=== PATIENT | female | born 1940 | race Hispanic/Latino ===

== ENCOUNTER 2021-08-03 08:40 | Day surgery (SDC) | payer MEDICARE ==
[2021-08-01 13:12] VITALS: BP 169/61
[2021-08-01 13:12] LABS: BASOPHILS % (AUTO) 0.6 % (0.0-5.0); EOSINOPHILS % (AUTO) 2.1 % (0.0-8.0); HEMATOCRIT 39.2 % (36-48); MEAN CORPUSCULAR HEMOGLOBIN 30.4 pg (27.0-33.0); MEAN CORPUSCULAR HGB CONC 32.9 g/dL (32.0-36.0); MEAN CORPUSCULAR VOLUME 92.2 fL (79-99); MONOCYTES % (AUTO) 8.3 % (3.0-13.0); NEUTROPHILS % (AUTO) 59.6 % (40.0-77.0); PLATELET COUNT (AUTO) 376 K/uL (130-400); RED BLOOD CELL COUNT(AUTO) 4.25 MIL/uL (4.00-5.50); RED CELL DISTRIBUTION WIDTH 14.4 % (11.0-15.5); WHITE BLOOD COUNT (AUTO) 7.3 K/uL (4.8-10.8)
[2021-08-01 13:16] LABS: APPEARANCE,URINE Clear (CLEAR); BILIRUBIN,URINE Negative (NEGATIVE); COLOR,URINE Dark Yellow (YELLOW); GLUCOSE, URINE (UA) Negative (NEGATIVE); KETONES,URINE Negative (NEGATIVE); LEUKOCYTE ESTERASE ,URINE Small (NEGATIVE); NITRATE,URINE Negative (NEGATIVE); OCCULT BLOOD,URINE Negative (NEGATIVE); PH,URINE 5.5 (5.0-8.0); PROTEIN,URINE Negative (NEGATIVE); UROBILINOGEN,URINE 0.2 mg/dL (0.2-1.0)
[2021-08-01 13:26] LABS: PROTHROMBIN TIME 10.9 SEC (9.6-11.6)
[2021-08-01 13:28] LABS: CREATININE 1.3 mg/dL (0.5-1.5); PARTIAL THROMBOPLASTIN TIME 27.3 SEC (26.3-35.5); POTASSIUM 4.7 mmol/L (3.5-5.1)
[2021-08-01 13:44] LABS: BACTERIA,URINE Rare /HPF (None Seen); RBC,URINE 0-1 /HPF (0-1); SQUAMOUS EPITHELIAL CELL,UR Rare /HPF (0-2); WBC,URINE 0-1 /HPF (0-1)
[2021-08-03] VITALS (10 sets, daily range): BP systolic 116–170; BP diastolic 45–94
[~2021-08-03] VITALS: Ht 160 cm; Wt 72.9 kg
[~2021-08-03 08:40] MED LIST: 0.9% NACL 500ML IV.SOLN 500 ML IV SCH; AMLO-258 PO; ATOR-2 PO; GLIM4TAB36 PO; HYDR-4154 PO; LINA5TAB PO; METO-409 PO; PIOG30TA70 PO
[2021-08-03] MEDS ORDERED: 0.9%NACL 1000ML 1,000 ML IV ONE (10:47)
[2021-08-03] MEDS ORDERED: MEPERIDINE-PF 25 MG/ML SYG ONE ×2 (13:09→14:07)
[2021-08-03] MEDS ORDERED: IOHEXOL 350 MG/ML 100ML INFUS..BTL IV ONE (13:09)
[2021-08-03] MEDS ORDERED: IOHEXOL-350 50ML VIAL IV ONE (13:09)
[2021-08-03] MEDS ORDERED: HEPARIN 10,000 UNIT/10ML (1,000 UNIT/ML) VIAL ONE (13:09)
[2021-08-03] MEDS ORDERED: NITROGLYCERIN 2 MG VIAL IV ONE (13:09)
[2021-08-03] MEDS ORDERED: MIDAZOLAM HCL 1 MG/ML 2ML VIAL ONE ×2 (13:09→14:07)
[2021-08-03] MEDS ORDERED: LIDOCAINE HCL 400MG/20ML VIAL ONE (13:09)
[2021-08-03] MEDS ORDERED: SODIUM BICARB 50MEQ 50ML VIAL 50 ML ONE (13:09)
[2021-08-03] MEDS ORDERED: NICARDIPINE 25MG INJ IV ONE (13:09)
[2021-08-03] MEDS ORDERED: ATROPINE 1MG SYG IVP ONE (14:05)
[2021-08-03] MEDS ORDERED: 0.9%NACL 1000ML 1,000 ML IV SCH (15:00)
[2021-08-03] MEDS ORDERED: DEXTROSE 50%-WATER 50 ML DISP.SYRIN IV PRN (15:00)
[2021-08-03] MEDS ORDERED: INSULIN HUMULIN R 100 UNIT/ML 3ML SQ SCH (16:30)
== END 2021-08-03 19:00 | disposition home or self-care (01) ==
LOC: DAH 08:40
PROVIDERS: ATTEND Internal Medicine Cardiovascular Disease
DX: I25.118 Atherosclerotic heart disease of native coronary artery with other forms of angina pectoris (principal); I12.9 Hypertensive chronic kidney disease with stage 1 through stage 4 chronic kidney disease, or unspecified chronic kidney disease; E11.22 Type 2 diabetes mellitus with diabetic chronic kidney disease; E78.5 Hyperlipidemia, unspecified; N18.30 Chronic kidney disease, stage 3 unspecified; Z79.01 Long term (current) use of anticoagulants; Z79.899 Other long term (current) drug therapy
CPT/HCPCS: 36415; 71045; 80048; 81001; 82948; 85025; 85610; 85730; 93005; 93458; A4215; A4216; A4221; A4222; A4223 ×3; A4606; A4663; C1769; C1894 ×2; J0461; J1644 ×2; J2175 ×2; J2250 ×2; J3490 ×4; J7030 ×2; Q9965; Q9967 ×2; 99156; 99157

== ENCOUNTER → 2022-07-18 | Outpatient (CLI) | payer MEDICARE ==
[~2022-07-18] MED LIST changes: -0.9% NACL 500ML IV.SOLN 500 ML IV SCH; +ALBUTEROL 0.083% 2.5 MG/3 ML INH IH ONE
== END | disposition home or self-care (01) ==
LOC: RESP 10:06
PROVIDERS: ATTEND Internal Medicine Cardiovascular Disease
DX: R06.00 Dyspnea, unspecified (principal)
CPT/HCPCS: 94060

== ENCOUNTER 2023-08-12 08:16 | Day surgery (SDC) | payer OTHER ==
[2023-08-07 14:05] LABS: BASOPHILS # (AUTO) 0.04 K/uL (0.00-0.20); BASOPHILS % (AUTO) 0.3 % (0.0-5.0); EOSINOPHILS # (AUTO) 0.08 K/uL (0.00-0.70); EOSINOPHILS % (AUTO) 0.7 % (0.0-8.0); HEMATOCRIT 41.7 % (36-48); IMMATURE GRANULOCYTE ABSOLUTE 0.05 K/uL (0-1); LYMPHOCYTES # (AUTO) 2.4 K/uL (1.0-4.8); LYMPHOCYTES % (AUTO) 20.6 % (21.0-51.0); MEAN CORPUSCULAR HGB CONC 33.1 g/dL (32.0-36.0); MEAN CORPUSCULAR VOLUME 87.6 fL (79-99); MONOCYTES # (AUTO) 0.6 K/uL (0.1-1.0); MONOCYTES % (AUTO) 5.1 % (3.0-13.0); NEUTROPHILS # (AUTO) 8.6 K/uL (1.8-7.7); NEUTROPHILS % (AUTO) 72.9 % (40.0-77.0); PLATELET COUNT (AUTO) 424 K/uL (130-400); RED BLOOD CELL COUNT(AUTO) 4.76 MIL/uL (4.00-5.50); RED CELL DISTRIBUTION WIDTH 15.7 % (11.0-15.5); WHITE BLOOD COUNT (AUTO) 11.8 K/uL (4.8-10.8)
[2023-08-07 14:19] LABS: CREATININE 1.1 mg/dL (0.5-1.5); POTASSIUM 3.9 mmol/L (3.5-5.1)
[2023-08-07 14:21] LABS: INR < 0.93 (0.85-1.15); PROTHROMBIN TIME 10.8 SEC (9.6-11.6)
[2023-08-07 14:22] VITALS: BP 168/75; PULSE 76; RESP 19
[2023-08-07 14:22] LABS: PARTIAL THROMBOPLASTIN TIME 27.6 SEC (26.3-35.5)
[2023-08-12] VITALS (11 sets, daily range): BP systolic 144–187; BP diastolic 57–91; PULSE 62–80; RESP 14–20; O2SAT 96
[~2023-08-12] VITALS: Ht 162.6 cm; Wt 60.6 kg
[~2023-08-12 08:16] MED LIST changes: -ALBUTEROL 0.083% 2.5 MG/3 ML INH IH ONE; -AMLO-258 PO; -ATOR-2 PO; +CHOL100046 PO; +FOLI1TAB85 PO; +FURO40TA5 PO; +GLIM2TAB30 PO; -GLIM4TAB36 PO; -HYDR-4154 PO; -LINA5TAB PO; -METO-409 PO; +NIFE-40 PO; -PIOG30TA70 PO; +ROSU10TA28 PO
[2023-08-12] MEDS ORDERED: 0.9%NACL 1000ML 1,000 ML IV ONE (09:25)
[2023-08-12] MEDS ORDERED: LINA5TAB PO (09:29)
[2023-08-12] MEDS ORDERED: VANCOMYCIN 1G/250ML KIT 500 ML IV ONE (15:06)
[2023-08-12] MEDS ORDERED: MIDAZOLAM HCL 1 MG/ML 2ML VIAL ONE ×2 (15:15→15:30)
[2023-08-12] MEDS ORDERED: MEPERIDINE-PF 25 MG/ML SYG ONE ×2 (15:15→15:30)
[2023-08-12] MEDS ORDERED: LIDOCAINE HCL 1% MDV 50ML VIAL ONE (15:17)
[2023-08-12] MEDS ORDERED: BUPIVACAINE/PF 0.25% 30ML VIAL IJ ONE (15:17)
[2023-08-12] MEDS ORDERED: BACITRACIN 1 EACH PACKET TP ONE (16:07)
[2023-08-12] MEDS ORDERED: ACETAMINOPHEN WITH CODEINE 1 TAB TAB PO PRN ×2 (17:00)
[2023-08-12] MEDS ORDERED: ONDANSETRON 4MG INJ IV PRN (17:00)
== END 2023-08-12 23:08 | disposition home or self-care (01) ==
LOC: DAH 08:16
PROVIDERS: ATTEND Internal Medicine Cardiovascular Disease
DX: I49.5 Sick sinus syndrome (principal); I42.9 Cardiomyopathy, unspecified; I44.1 Atrioventricular block, second degree; E11.22 Type 2 diabetes mellitus with diabetic chronic kidney disease; I13.0 Hypertensive heart and chronic kidney disease with heart failure and stage 1 through stage 4 chronic kidney disease, or unspecified chronic kidney disease; N18.30 Chronic kidney disease, stage 3 unspecified; I50.42 Chronic combined systolic (congestive) and diastolic (congestive) heart failure; Z79.01 Long term (current) use of anticoagulants; Z88.0 Allergy status to penicillin; Z88.8 Allergy status to other drugs, medicaments and biological substances
CPT/HCPCS: 80048; 85025; 85610; 85730; 36415; 93005; 33216; 82948 ×2; 71045; C1898; C1894; J7030; J0665; J2250 ×2; J3370; J2175 ×2; J3490; A4215; A4222; A4221; A4663; A4216; A4606; A4223 ×3; 33224; 92979; 99156; 99157

== ENCOUNTER → 2023-12-30 | Outpatient (CLI) | payer OTHER ==
[~2023-12-30] MED LIST changes: +LINA5TAB PO
== END | disposition home or self-care (01) ==
LOC: SHCH 08:50
PROVIDERS: ATTEND Internal Medicine Cardiovascular Disease
DX: I08.0 Rheumatic disorders of both mitral and aortic valves (principal); I11.9 Hypertensive heart disease without heart failure
CPT/HCPCS: 93306

== ENCOUNTER → 2025-05-18 | Outpatient (CLI) | payer OTHER ==
[~2025-05-18] MED LIST changes: -ROSU10TA28 PO; +ROSU10TA72 PO
[2025-05-18] MEDS: REGADENOSON 0.4 MG/5 ML PF SYG IVP ONE (13:07)
== END | disposition home or self-care (01) ==
LOC: RAH 10:53
PROVIDERS: ATTEND Internal Medicine Cardiovascular Disease
DX: I10 Essential (primary) hypertension (principal); I47.20 Ventricular tachycardia, unspecified; R06.09 Other forms of dyspnea
CPT/HCPCS: 78452; 93017; J2785; A9500 ×2

== ENCOUNTER 2025-07-02 09:56 | Day surgery (SDC) | payer OTHER ==
[2025-06-30 11:13] LABS: IMMATURE GRANULOCYTE ABSOLUTE 0.02 K/uL (0-1); NUCLEATED RED BLOOD CELLS 0.0 % (0.0-0.19); PLATELET COUNT (AUTO) 368 K/uL (130-400); RED BLOOD CELL COUNT(AUTO) 4.10 MIL/uL (4.00-5.50); RED CELL DISTRIBUTION WIDTH 13.6 % (11.0-15.5); WHITE BLOOD COUNT (AUTO) 7.2 K/uL (4.8-10.8)
[2025-06-30 11:20] LABS: CREATININE 1.2 mg/dL (0.5-1.0); GLOMERULAR FILTR. RATE CALC 45.0 mL/min (>90); GLUCOSE,RANDOM 253.0 mg/dL (70-105); SODIUM SERUM 141.0 mmol/L (136-145); UREA NITROGEN, BLOOD 34.0 mg/dL (7-18)
[2025-06-30 11:21] LABS: APPEARANCE,URINE CLEAR (CLEAR); GLUCOSE, URINE (UA) NEGATIVE (NEGATIVE); LEUKOCYTE ESTERASE ,URINE 500 Leu/uL (NEGATIVE); NITRATE,URINE NEGATIVE (NEGATIVE); OCCULT BLOOD,URINE NEGATIVE (NEGATIVE)
[2025-06-30 11:22] LABS: ADD UA MICROSCOPIC YES
[2025-06-30 11:23] VITALS: BP 140/94; PULSE 69; RESP 15; TEMP 97
--- NOTE | 2025-06-30 11:29 | EKG ---
[facility] Test Date: 2025-06-30 Test Time: 11:02:29 Pat Name: CLAUDE MERIDA Department: [facility] Room: Gender: F Nickel Plater: [id number] : 1940 Requested By: Mady BROOKS Order Number: [id number] Reading MD: Ashley Ellis Measurements Intervals Liberal Rate: 67 P: 0 NE: 124 QRS: 87 QRSD: 135 T: 249 QT: 479 QTc: 505 Interpretive Statements Atrial-paced complexes Nonspecific intraventricular conduction delay Probable anteroseptal infarct, recent Abnormal T, consider ischemia, diffuse leads Compared to ECG 08/07/2023 13:58:57 Intraventricular conduction delay now present Myocardial infarct finding now present T-wave abnormality now present Possible ischemia now present Electronically Signed On 06-30-2025 16:39:37 CDT by Ashley Ellis Please click the below link to view image of tracing.
[2025-06-30 11:34] LABS: INR 0.97 (0.85-1.15)
[2025-06-30 11:37] LABS: SQUAMOUS EPITHELIAL CELL,UR RARE /HPF (0-2)
--- NOTE | 2025-06-30 14:23 | HMCIMG ---
EXAM: X-RAY CHEST, ONE VIEW (POSTEROANTERIOR) Technique: A posteroanterior projection of the chest was obtained and submitted for interpretation. Clinical Information: Preoperative evaluation. Comparison: None available. Findings: The pulmonary ortega demonstrate symmetrical aeration without infiltrates, nodules, or consolidation. The cardiac silhouette is within normal limits in size and contour. The mediastinum and junior appear normal with no widening or mass. The costophrenic angles are sharp bilaterally. No pleural effusion or pneumothorax is identified. A multilead cardiac pacemaker is visualized in the right chest wall with intact leads in satisfactory position. The visualized bony structures, including the ribs and thoracic spine, appear intact. IMPRESSION: 1. No acute cardiopulmonary findings. /[place]
--- NOTE | 2025-07-01 12:39 | NUR ---
RE: UA REPORTED UA RESULTS AND URINE CX RESULTS TO SAMRA YAN NP. RECEIVED ORDERS FOR ROCEPHIN 1GRAM IV IN AM BEFORE POST FRAMER PROCEDURE.
--- NOTE | 2025-07-01 16:58 | NUR ---
RE: PENICILLIN ALLERGY INFORMED SAMRA YAN NP ABOUT PATIENT'S ALLERGY TO PENICILLIN. ROCEPHIN CHANGED TO LEVOFLOXACIN 500MG IV.
[~2025-07-02] VITALS: Ht 160 cm; Wt 72.0 kg
[2025-07-02] VITALS (11 sets, daily range): BP systolic 135–184; BP diastolic 56–79; PULSE 58–76; RESP 13–18; TEMP 97.6–98.1
[~2025-07-02 09:56] MED LIST changes: +CLON0.1T PO; +EZET10TA80 PO; +FOLI0.8T22 PO; -FOLI1TAB85 PO; -GLIM2TAB30 PO; +GLIM4TAB36 PO; +METO-391 PO; -NIFE-40 PO; -ROSU10TA72 PO; +ROSU10TA98 PO
[2025-07-02] MEDS ORDERED: SODIUM BICARB 50MEQ 50ML VIAL 50 ML ONE (14:17)
[2025-07-02] MEDS ORDERED: IOHEXOL 350 MG/ML 100ML INFUS..BTL IV ONE (14:17)
[2025-07-02] MEDS ORDERED: LIDOCAINE HCL 400MG/20ML VIAL ONE (14:17)
[2025-07-02] MEDS ORDERED: NITROGLYCERIN 50MG VIAL ONE (14:18)
[2025-07-02] MEDS ORDERED: HEParin-NS 1,000 UNIT/500 ML 1,000 ML IV ONE (14:18)
[2025-07-02] MEDS: 0.9%NACL 1000ML 1,000 ML IV SCH (14:22)
--- NOTE | 2025-07-02 14:33 | NUR ---
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 Reported off in full to receiving Nurse, Kat GREEN
[2025-07-02] MEDS ORDERED: MIDAZOLAM HCL 1 MG/ML 2ML VIAL ONE ×3 (14:46→15:05)
[2025-07-02] MEDS ORDERED: IOHEXOL-350 50ML VIAL IV ONE (14:46)
[2025-07-02] MEDS ORDERED: 0.9%NACL 1000ML 1,000 ML IV SCH (15:30)
[2025-07-02] MEDS ORDERED: DEXTROSE 50%-WATER 50 ML DISP.SYRIN IV PRN (15:30)
[2025-07-02] MEDS ORDERED: GLUCAGON 1MG KIT 1 MG ML IM PRN (15:30)
--- NOTE | 2025-07-02 15:59 | CCATH ---
PROCEDURE NOTE PROCEDURES: * Left heart catheterization. * Left ventriculogram. * Diagnostic selective right and left coronary arteriogram. * Conscious sedation for 30 minutes. INDICATIONS: * Conduction system disease. * Cardiomyopathy. * Mitral insufficiency. * Ventricular tachycardia. COMPLICATIONS: None. TOTAL CONTRAST: 50 mL APPROACH: Right radial approach. DESCRIPTION OF PROCEDURE: The patient was taken to the cardiac powerhouse laborer after appropriate operative consents were signed. She was prepped and draped in the usual fashion. After conscious sedation was administered, the right radial artery region was infiltrated with 2% lidocaine without epinephrine. The radial artery was cannulated and a retrograde sheath was advanced, slender sheath via the modified Seldinger technique. At this point, a TIG-4 catheter was advanced and placed in the ascending aorta. It was selectively engaged in the ostium of the right coronary artery. This was imaged in multiplane. This was a large vessel that was noted to give us an acute marginal, PDA, and a branching PLVB. The PDA, the right coronary artery, and the second PLVB branch were large vessels. There were no significant stenotic lesions. The catheter was then redirected and engaged in the left main coronary artery. This was imaged in multiplane. The left main was a moderately large vessel that was free of disease. It bifurcated into the LAD, and circumflex. The LAD was a moderately large vessel that gave rise to several diagonal and septal perforators. The LAD had a 30% tubular stenotic lesion just after the diagonal branch. There were no other significant stenotic lesions. The circumflex was a moderately large vessel that gave rise to a moderately sized obtuse marginal 1, a small OM2, and a moderately large OM3. There were no significant lesions in the circumflex system. At this point, we placed a pigtail catheter in the left ventricle. 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 The patient had mild MR and an EF of 45%. At this point, the procedure was completed, the catheter was withdrawn over an indwelling wire. A radial band was applied and the patient tolerated it well and left the cardiac powerhouse laborer in stable condition. FINAL IMPRESSION: * Minimal coronary artery disease with an ejection fraction of 30%. * Mild mitral regurgitation. * No aortic stenosis. 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 TID: [id number] RECEIPT: [id number]
--- NOTE | 2025-07-02 17:50 | NUR ---
REMOVED TR BAND. CLEANED RIGHT WRIST WITH CHLORAPREP. APPLIED A 4X4 STERILE GAUZE, APPLIED A STERILE 4X4 TEGADERM, AND COBAN IN PLACE TO SECURE DRESSING. NO ACTIVE BLEEDING OR DRAINAGE. NO REDNESS OR SWELLING. RIGHT WRIST SOFT TO TOUCH.
== END 2025-07-02 21:30 | disposition home or self-care (01) ==
LOC: DAH 09:56
PROVIDERS: ATTEND Internal Medicine Cardiovascular Disease
DX: I25.118 Atherosclerotic heart disease of native coronary artery with other forms of angina pectoris (principal); I42.9 Cardiomyopathy, unspecified; I34.0 Nonrheumatic mitral (valve) insufficiency; E78.5 Hyperlipidemia, unspecified; I47.20 Ventricular tachycardia, unspecified; E11.22 Type 2 diabetes mellitus with diabetic chronic kidney disease; I13.0 Hypertensive heart and chronic kidney disease with heart failure and stage 1 through stage 4 chronic kidney disease, or unspecified chronic kidney disease; N18.30 Chronic kidney disease, stage 3 unspecified; I50.9 Heart failure, unspecified; I45.4 Nonspecific intraventricular block; E86.0 Dehydration; Z95.0 Presence of cardiac pacemaker; I25.2 Old myocardial infarction; Z88.0 Allergy status to penicillin; Z88.8 Allergy status to other drugs, medicaments and biological substances; Z79.899 Other long term (current) drug therapy
CPT/HCPCS: 80048; 83880; 85025; 85610; 85730; 87086 ×2; 81001; 36415; 71045; 93005; 93458; 99156; 99157 ×2; 87186; 82948; 96360; 96361; C1769; C1894; Q9965; J3010; J3490 ×4; J1956; J0360; J1644 ×2; J2250 ×2; Q9967 ×2; A4215; A4222; A4221; A4663; A4216; A4606; A4223 ×3